=== PATIENT | male | born 1935 | race Caucasian/White ===

== ENCOUNTER 2022-03-26 05:46 | Day surgery (SDC) | payer OTHER ==
[2022-03-22 09:30] LABS: BASOPHILS % (AUTO) 0.4 % (0.0-5.0); EOSINOPHILS % (AUTO) 1.9 % (0.0-8.0); HEMATOCRIT 45.5 % (42-54); LYMPHOCYTES % (AUTO) 24.9 % (21.0-51.0); MEAN CORPUSCULAR HEMOGLOBIN 32.2 pg (27.0-33.0); MEAN CORPUSCULAR HGB CONC 31.9 g/dL (32.0-36.0); MEAN CORPUSCULAR VOLUME 101.1 fL (79-99); NEUTROPHILS % (AUTO) 62.2 % (40.0-77.0); PLATELET COUNT (AUTO) 121 K/uL (130-400); RED CELL DISTRIBUTION WIDTH 14.8 % (11.0-15.5); WHITE BLOOD COUNT (AUTO) 6.9 K/uL (4.8-10.8)
[2022-03-22 09:41] LABS: CREATININE 1.9 mg/dL (0.5-1.5); POTASSIUM 4.5 mmol/L (3.5-5.1)
[2022-03-22 09:53] LABS: INR 1.06 (0.85-1.15); PROTHROMBIN TIME 11.5 SEC (9.6-11.6)
[2022-03-22 09:54] LABS: PARTIAL THROMBOPLASTIN TIME 29.6 SEC (26.3-35.5)
[2022-03-22 14:39] VITALS: BP 170/90
[~2022-03-26] VITALS: Ht 177.8 cm; Wt 132.0 kg
[2022-03-26] VITALS (32 sets, daily range): BP systolic 102–167; BP diastolic 49–92
[~2022-03-26 05:46] MED LIST: 0.9%NACL 1000ML 1,000 ML IV SCH; ALLO300T2 PO; APIX2.5T PO; CARV12.511 PO; CLOP75TA32 PO; CYAN1TAB44 PO; FURO20TA4 PO; GLIP10TA9 PO; MULT-1289 PO; SENN-307 PO; SITA50TA PO
[2022-03-26] MEDS ORDERED: VANCOMYCIN 1G/250ML KIT 250 ML IV SCH (06:00)
[2022-03-26] MEDS ORDERED: DEXTROSE 50%-WATER 50 ML DISP.SYRIN IV ONE (09:27)
[2022-03-26] MEDS ORDERED: FLUMAZENIL 0.1MG/1ML 5ML VIAL IV ONE (09:35)
[2022-03-26] MEDS ORDERED: LIDOCAINE HCL 1% 20 ML VIAL ONE (09:48)
[2022-03-26] MEDS ORDERED: BUPIVACAINE/PF 0.25% 30ML VIAL IJ ONE (09:49)
[2022-03-26] MEDS ORDERED: CEFAZOLIN SODIUM 1 GM VIAL ONE (09:49)
[2022-03-26] MEDS ORDERED: MIDAZOLAM HCL 1 MG/ML 2ML VIAL ONE ×2 (10:08→11:07)
[2022-03-26] MEDS ORDERED: FENTANYL CITRATE PF 50 MCG/1 ML 2ML VIAL ONE (10:08)
[2022-03-26] MEDS ORDERED: BACITRACIN 1 EACH PACKET TP ONE (10:50)
[2022-03-26] MEDS ORDERED: ACETAMINOPHEN 500 MG TABLET PO PRN (12:00)
[2022-03-26 12:23] LABS: ABG BASE EXCESS 2.2 mmol/L (-2.0-3.0); ABG HCO3 34.6 mmol/L (21.0-28.0); ABG OXYGEN SATURATION 99.3 % (95.0-99.0); ABG PCO2 99 mmHg (35-48)
== END 2022-03-26 15:30 | disposition home or self-care (01) ==
LOC: DAH 05:46
PROVIDERS: ATTEND Internal Medicine Cardiovascular Disease
DX: T82.191A Other mechanical complication of cardiac pulse generator (battery), initial encounter (principal); I25.5 Ischemic cardiomyopathy; I44.2 Atrioventricular block, complete; I11.0 Hypertensive heart disease with heart failure; I50.22 Chronic systolic (congestive) heart failure; I48.19 Other persistent atrial fibrillation; E11.29 Type 2 diabetes mellitus with other diabetic kidney complication; I25.10 Atherosclerotic heart disease of native coronary artery without angina pectoris; E66.01 Morbid (severe) obesity due to excess calories; K21.9 Gastro-esophageal reflux disease without esophagitis; Z79.01 Long term (current) use of anticoagulants; Z79.82 Long term (current) use of aspirin; Z79.899 Other long term (current) drug therapy; Z95.5 Presence of coronary angioplasty implant and graft; Z88.0 Allergy status to penicillin; Z88.2 Allergy status to sulfonamides; Z88.8 Allergy status to other drugs, medicaments and biological substances; Z98.890 Other specified postprocedural states; Z83.3 Family history of diabetes mellitus; Y83.8 Other surgical procedures as the cause of abnormal reaction of the patient, or of later complication, without mention of misadventure at the time of the procedure; Y92.89 Other specified places as the place of occurrence of the external cause
CPT/HCPCS: 80048; 85025; 85610; 85730; 36415; 93005; 33264; 82947; 82435; 84132; 84295; 82803; 85018; 83605; 94660; 82948 ×4; 36600; C1882; J3010; J3490 ×2; J7030; J7070; J2250 ×2; J3370 ×2; A4215; A4222; A4221; A4663; A4216; A4606; A4223 ×3; 33263; J0690